=== PATIENT | male | born 1995 | race Two or more races ===

== ENCOUNTER 2016-08-19 16:15 | Emergency (ER) | payer MEDICAID ==
[~2016-08-19] VITALS: Ht 177.8 cm; Wt 74.8 kg
[2016-08-19] MEDS ORDERED: BECL0.07 INH (16:41)
[2016-08-19] MEDS ORDERED: ALBUAER3 IN (16:41)
[2016-08-19 17:06] VITALS: BP 137/76
== END 2016-08-19 17:52 | disposition home or self-care (01) ==
LOC: ER 16:17
DX: J45.909 Unspecified asthma, uncomplicated (principal); F41.9 Anxiety disorder, unspecified
CPT/HCPCS: 93005

== ENCOUNTER 2016-11-23 02:05 | Emergency (ER) | payer SELFPAY ==
[~2016-11-23] VITALS: Ht 172.7 cm; Wt 81.6 kg
[~2016-11-23 02:05] MED LIST: ALBUAER3 IN; BECL0.07 INH
[2016-11-23 02:10] VITALS: BP 129/84
== END 2016-11-23 03:14 | disposition left against medical advice (07) ==
LOC: ER 02:05
DX: F41.9 Anxiety disorder, unspecified (principal); Z53.21 Procedure and treatment not carried out due to patient leaving prior to being seen by health care provider

== ENCOUNTER 2020-05-07 17:33 | Emergency (ER) | payer MEDICAID, OTHER ==
[~2020-05-07] VITALS: Ht 177.8 cm; Wt 83.9 kg
[2020-05-07 18:42] LABS: Basophils # (auto) 0 10 ^3/uL (0-0.2); Basophils % (auto) 0.1 % (0.0-2.0); Eosinophils # (auto) 0 10 ^3/uL (0-0.8); Hematocrit 43.5 % (41.0-53.0); Hemoglobin 14.8 g/dL (13.5-17.5); Lymphocytes # (auto) 1.1 10 ^3/uL (0.4-5.4); Lymphocytes % (auto) 5.2 % (10.0-50.0); Mean Corpuscular Hemoglobin 30.2 pg (28.0-32.0); Mean Corpuscular Volume 88.8 fL (80.0-100.0); Monocytes # (auto) 1.6 10 ^3/uL (0-1.3); Monocytes % (auto) 7.4 % (0.0-12.0); Neutrophils # (auto) 18.9 10 ^3/uL (1.6-8.6); Neutrophils % (auto) 87.3 % (37.0-80.0); Platelet Count (auto) 439 10^3/uL (140-450); Red Cell Distribution Width 12.9 % (11.8-14.3); White Blood Cell 21.6 10^3/uL (4.4-10.8)
[2020-05-07 19:08] LABS: Alkaline Phosphatase 100 U/L (45-117); Bilirubin, Total 0.4 mg/dL (0.2-1.0); Total Protein 8.2 g/dL (6.4-8.2)
[2020-05-07 19:34] LABS: Calcium 9.5 mg/dL (8.5-10.1); Glucose 103 mg/dL (74-106)
[2020-05-07 19:38] LABS: Anion Gap 17 (5-15); BUN/Creatinine Ratio 16.8; Blood Urea Nitrogen 16 mg/dL (7-18); Carbon Dioxide 16 mmol/L (21-32); Chloride 103 mmol/L (98-107); GFR African American 125 mL/min; GFR Non-African American 104 mL/min; Potassium 3.5 mmol/L (3.5-5.1); Sodium 136 mmol/L (136-145)
[2020-05-07 19:39] LABS: Alanine Aminotransferase 45 U/L (16-61); Aspartate Aminotransferase 31 U/L (15-37)
[2020-05-07] MEDS ORDERED: LORazepam 2MG/ML-1ML VIAL IV ONE (20:00)
[2020-05-07 20:01] LABS: Albumin 4.1 g/dL (3.4-5.0)
[2020-05-07] MEDS ORDERED: SODIUM CHLORIDE 0.9% 1,000 ML IV ONE ×2 (22:15→23:00)
[2020-05-07 22:34] LABS: INR 0.99 (0.9-1.15); Partial Thromboplastin Time 25.2 sec (23.0-31.2)
[2020-05-07] MEDS ORDERED: ACETAMINOPHEN 325 MG TAB PO ONE (23:00)
[2020-05-07 23:53] LABS: Urine Bacteria NONE SEEN /hpf (None Seen); Urine Blood Negative /uL (Negative); Urine Hyaline Cast FEW /lpf (0 - 2); Urine Mucus FEW (None Seen); Urine Specific Gravity 1.025 (1.001-1.035); Urine WBC 1 /hpf (0 - 3)
[2020-05-08] MEDS ORDERED: IOHEXOL 350 MG/ML 100ML IJ ONE (02:00)
[2020-05-08] MEDS ORDERED: DOXYCYCLINE 100MG/250ML 250 ML IV ONE (03:15)
[2020-05-08] MEDS ORDERED: DexAMETHasone SOD PHOS 10MG/1ML VIAL INJ IV ONE (03:15)
[2020-05-08] MEDS ORDERED: ACETAMINOPHEN 325 MG TAB PO ONE (04:00)
[2020-05-08 07:43] VITALS: BP 132/80
== END 2020-05-08 08:12 | disposition home or self-care (01) ==
LOC: EDBD 17:33 → ER 17:33
DX: J18.9 Pneumonia, unspecified organism (principal); F41.9 Anxiety disorder, unspecified; J45.909 Unspecified asthma, uncomplicated; Z20.828 Contact with and (suspected) exposure to other viral communicable diseases; Z88.0 Allergy status to penicillin; Z79.899 Other long term (current) drug therapy; Z90.89 Acquired absence of other organs
CPT/HCPCS: 36415; 71046; 71275; 80053; 81001; 83605; 84484; 85025; 85379; 85610; 85730; 87040; 87070; 87086; 87426; 87804; 87880; 93005; 96361; 96365; 96366; 96375; 99285; C9803; J1100; J2060; J3490; Q9967; U0003